=== PATIENT | female | born 1955 | race Asian ===

== ENCOUNTER 2018-06-06 01:33 | Emergency (ER) | payer MEDICAID ==
[2018-06-06] MEDS ORDERED: Sodium Chloride 0.9% 1,000 ML IV ONE (01:50)
[2018-06-06] MEDS ORDERED: Ondansetron 4 MG/2 ML SDV IVPUSH ONE (01:50)
--- NOTE | 2018-06-06 01:51 | EDM.PDOC ---
ED HPI GENERAL MEDICAL PROBLEM - General Chief Complaint: General Stated Complaint: DIZZY, VOMITING Time Seen by Provider: 06/06/18 01:51 Source of Information: Reports: Patient - History of Present Illness INITIAL COMMENTS - FREE TEXT/NARRATIVE: HISTORY AND PHYSICAL: History of present illness: []Patient presents with dizziness and vomiting 3, she will woke from sleep complains of dizziness in the 3 episodes of vomiting prior to this is enjoying her usual state of health At current she has no fever nausea vomiting diarrhea constipation chest pain shortness breath headache dizziness palpitation no bowel or urine symptoms she does have muscle spasm in the trapezius distribution on the left which is reproducible with palpation as well as left SCM present for 2 years Review of systems: As per history of present illness and below otherwise all systems reviewed and negative. Past medical history: As per history of present illness and as reviewed below otherwise noncontributory. Surgical history: As per history of present illness and as reviewed below otherwise noncontributory. Social history: No reported history of drug or alcohol abuse. Family history: As per history of present illness and as reviewed below otherwise noncontributory. Physical exam: HEENT: Atraumatic, normocephalic, pupils reactive, negative for conjunctival pallor or scleral icterus, mucous membranes moist, throat clear, neck supple, nontender, trachea midline. Lungs: Clear to auscultation, breath sounds equal bilaterally, chest nontender. Heart: S1S2, regular, negative for clicks, rubs, or JVD. Abdomen: Soft, nondistended, nontender. Negative for masses or hepatosplenomegaly. Negative for costovertebral tenderness. Pelvis: Stable nontender. Genitourinary: Deferred. Rectal: Deferred. Extremities: Atraumatic, negative for cords or calf pain. Neurovascular unremarkable. Neuro: Awake, alert, oriented. Cranial nerves II through XII unremarkable. Cerebellum unremarkable. Motor and sensory unremarkable throughout. Exam nonfocal. Diagnostics: [CBC CMP UA troponin EKG Chest 1 view ] Therapeutics: [ saline Zofran ]k-dur K Dur prescription 40 mEq by mouth daily #10 no refill Patient offered admission she refuses prefers to go home Impression: Hypokalemia [] nausea vomiting dizziness -resolved Chronic history of baseline Definitive disposition and diagnosis as appropriate pending reevaluation and review of above. head Pain Score (Numeric/FACES): 5 - Related Data Allergies Allergy/AdvReac Type Severity Reaction Status Date / Time Iodinated Contrast- Oral and Allergy Airway Verified 06/06/18 01:48 IV Dye Tightness Home Meds: Home Meds Albuterol Sulfate [Proair Hfa] 1 puff IH ASDIRECTED PRN 06/06/18 [History] Calcium Carbonate/Vitamin D3 [Caltrate 600 + D Soft Chew Tab] 0 mg PO BID [History] Cholecalciferol (Vitamin D3) [Vitamin D3] 0 mg PO BID 06/06/18 [History] Linagliptin/Metformin Hcl [Jentadueto 2.5 mg-850 mg Tab] 0 mg PO BID 06/06/18 [ History] Losartan/Hydrochlorothiazide [Losartan-HCTZ 100-25 MG] 0 mg PO DAILY 06/06/18 [ History] amLODIPine Besylate [Amlodipine Besylate] 2.5 mg PO BEDTIME 06/06/18 [History] ED ROS GENERAL - Review of Systems Review Of Systems: See Below ED EXAM, GENERAL - Physical Exam Exam: See Below Course - Vital Signs Last Recorded V/S: Last Vital Signs Temp 97 F 06/06/18 01:33 Pulse 73 06/06/18 03:17 Resp 16 06/06/18 03:17 BP 154/99 H 06/06/18 03:17 Pulse Ox 98 06/06/18 03:17 - Orders/Labs/Meds Orders: Active Orders 24 hr Category Date Time Status EKG Documentation Completion [RC] STAT Care 06/06/18 01:51 Active Chest 1V Frontal [CR] Stat Exams 06/06/18 01:51 Taken Labs: Laboratory Tests 06/06/18 06/06/18 06/06/18 Range/Units 02:00 02:00 02:40 WBC 7.74 (4.0-11.0) K/uL RBC 4.81 (4.30-5.90) M/uL Hgb 15.2 (12.0-16.0) g/dL Hct 42.6 (36.0-46.0) % MCV 88.6 (80.0-98.0) fL MCH 31.6 (27.0-32.0) pg MCHC 35.7 (31.0-37.0) g/dL RDW Std Deviation 37.7 (28.0-62.0) fl RDW Coeff of Claudia 12 (11.0-15.0) % Plt Count 183 (150-400) K/uL MPV 8.80 (7.40-12.00) fL Neut % (Auto) 53.5 (48.0-80.0) % Lymph % (Auto) 36.8 (16.0-40.0) % [place] % (Auto) 6.7 (0.0-15.0) % Eos % (Auto) 2.7 (0.0-7.0) % Baso % (Auto) 0.3 (0.0-1.5) % Neut # (Auto) 4.1 (1.4-5.7) K/uL Lymph # (Auto) 2.9 H (0.6-2.4) K/uL [place] # (Auto) 0.5 (0.0-0.8) K/uL Eos # (Auto) 0.2 (0.0-0.7) K/uL Baso # (Auto) 0.0 (0.0-0.1) K/uL Nucleated RBC % 0.0 /100WBC Nucleated RBCs # 0 K/uL Sodium 140 (136-145) mmol/L Potassium 2.7 L (3.5-5.1) mmol/L Chloride 99 (98-107) mmol/L Carbon Dioxide 29.8 (21.0-32.0) mmol/L BUN 22 H (7.0-18.0) mg/dL Creatinine 0.8 (0.6-1.0) mg/dL Est Cr Clr Drug Dosing TNP Estimated GFR (MDRD) > 60.0 ml/min Glucose 187 H (74-106) mg/dL Calcium 9.7 (8.5-10.1) mg/dL Total Bilirubin 0.4 (0.2-1.0) mg/dL AST 14 L (15-37) IU/L ALT 12 L (14-63) IU/L Alkaline Phosphatase 60 (46-116) U/L Troponin I < 0.050 (0.000-0.056) ng/mL Total Protein 7.7 (6.4-8.2) g/dL Albumin 3.9 (3.4-5.0) g/dL Globulin 3.8 (2.6-4.0) g/dL Albumin/Globulin Ratio 1.0 (0.9-1.6) Urine Color YELLOW Urine Appearance CLEAR Urine pH 7.0 (5.0-8.0) Ur Specific [place] 1.020 (1.001-1.035) Urine Protein 30 H (NEGATIVE) mg/dL Urine Glucose (UA) 100 H (NEGATIVE) mg/dL Urine Ketones NEGATIVE (NEGATIVE) mg/dL Urine Occult Blood NEGATIVE (NEGATIVE) Urine Nitrite NEGATIVE (NEGATIVE) Urine Bilirubin NEGATIVE (NEGATIVE) Urine Urobilinogen 0.2 (<2.0) EU/dL Ur Leukocyte Esterase NEGATIVE (NEGATIVE) Urine RBC 0-1 (0-2/HPF) Urine WBC 0-1 (0-5/HPF) Ur Epithelial Cells OCCASIONAL (NONE-FEW) Urine Bacteria RARE (NEGATIVE) Meds: Medications Discontinued Medications Generic Name Dose Route Start Last Admin Trade Name Freq PRN Reason Stop Dose Admin Sodium Chloride 1,000 mls @ 999 mls/hr 06/06/18 01:50 06/06/18 02:02 Normal Saline IV 06/06/18 02:50 999 mls/hr STAT ONE Administration Ondansetron HCl 8 mg 06/06/18 01:50 06/06/18 02:02 Zofran IVPUSH 06/06/18 01:51 8 mg ONETIME ONE Administration Potassium Chloride 40 meq 06/06/18 02:53 06/06/18 03:16 Klor-Con M20 PO 06/06/18 02:54 40 meq ONETIME ONE Administration Departure - Departure Time of Disposition: 03:41 Disposition: Home, Self-Care 01 Condition: Good Clinical Impression: Hypokalemia, Nausea & vomiting - Discharge Information Referrals: PCP,None [Primary Care Provider] - Forms: ED Department Discharge Additional Instructions: The following information is given to patients seen in the emergency department who are being discharged to home. This information is to outline your options for follow-up care. We provide all patients seen in our emergency department with a follow-up referral. The need for follow-up, as well as the timing and circumstances, are variable depending upon the specifics of your emergency department visit. If you don't have a primary care physician on staff, we will provide you with a referral. We always advise you to contact your personal physician following an emergency department visit to inform them of the circumstance of the visit and for follow-up with them and/or the need for any referrals to a consulting specialist. The emergency department will also refer you to a specialist when appropriate. This referral assures that you have the opportunity for follow-up care with a specialist. All of these measure are taken in an effort to provide you with optimal care, which includes your follow-up. Under all circumstances we always encourage you to contact your private physician who remains a resource for coordinating your care. When calling for follow-up care, please make the office aware that this follow-up is from your recent emergency room visit. If for any reason you are refused follow-up, please contact the [facility] emergency department at and asked to speak to the emergency department charge nurse. - My Orders Last 24 Hours: My Active Orders 06/06/18 01:51 EKG Documentation Completion [RC] STAT Chest 1V Frontal [CR] Stat - Assessment/Plan Last 24 Hours: My Active Orders 06/06/18 01:51 EKG Documentation Completion [RC] STAT Chest 1V Frontal [CR] Stat
[2018-06-06 02:37] LABS: CHLORIDE,CL 99 mmol/L (98-107); SODIUM,NA 140 mmol/L (136-145)
[2018-06-06] MEDS ORDERED: Potassium Chloride 20 MEQ Tab.ER PO ONE (02:53)
--- NOTE | 2018-06-06 11:21 | CR ---
EXAM DATE: 06/06/18 PATIENT'S AGE: 62 Patient: PIERRE GAITAN Facility: [place], [place] Site . Site : 1955 Study: XRay Chest -06/06/2018 2:31:02 AM Ordering Physician: Jordyn Morrison Final Report: Indication: Chest pain Technique: Chest 1 view. Comparison: None Findings: Cardiovascular and mediastinum: Heart size and vasculature are normal in caliber and appearance. Mediastinum is within normal limits. Lungs and pleural space: Lungs are clear. No sign of infiltrate or mass. No sign of pleural effusion. No pneumothorax. Bones and soft tissues: No significant findings. Impression: No sign of acute disease. Dictated by Viky Herrera MD @ Jun 06 2018 2:38AM (Electronic Signature) Report Signed by Proxy. NY[facility] LANGONE ORTHOPEDIC HOSPITALChelsie
== END 2018-06-06 03:55 | disposition home or self-care (01) ==
LOC: MW.ED 01:33
DX: E87.6 Hypokalemia (principal); I10 Essential (primary) hypertension; Z79.899 Other long term (current) drug therapy; Z91.041 Radiographic dye allergy status
CPT/HCPCS: 36415; 71045; 80053; 81001; 84484; 85025; 93005; 96361; 96374; 99284; A9270; J2405; J7040; 99283

== ENCOUNTER 2018-06-29 07:32 | Day surgery (SDC) | payer MEDICAID ==
[~2018-06-29 07:32] MED LIST: Lactated Ringers 1,000 ML IV SCH; Sodium Chloride 0.9% 10 ML Syringe FLUSH PRN; Sodium Chloride 0.9% 2.5 ML Syringe FLUSH PRN
--- NOTE | 2018-06-29 08:29 | PCM.PREANE ---
Preanesthetic Assessment - Anesthesia/Transfusion/Family Hx Anesthesia History: Prior Anesthesia Without Reaction Family History of Anesthesia Reaction: No Transfusion History: Prior Transfusion Reaction Type of Transfusion Reactions: Reports: Other (see below) Other Type of Transfusion Reaction: dizzy, hot, burning feeling Intubation History: Unknown - Review of Systems General: No Symptoms Pulmonary: No Symptoms Cardiovascular: No Symptoms Gastrointestinal: Constipation, Other (change in bowel habits) Neurological: No Symptoms Other: Reports: None - Physical Assessment Height: 1.52 m Weight: 63.957 kg ASA Class: 2 Mental Status: Alert & Oriented x3 Airway Class: Mallampati = 2 Dentition: Reports: Normal Dentition Thyro-Mental Finger Breadths: 3 Mouth Opening Finger Breadths: 2 ROM/Head Extension: Full Lungs: Clear to Auscultation, Normal Respiratory Effort Cardiovascular: Regular Rate, Regular Rhythm - Allergies Allergies/Adverse Reactions: Allergies Allergy/AdvReac Type Severity Reaction Status Date / Time Iodine and Iodide Containing Allergy Mild Anaphylactic Verified 06/26/18 14:03 Produc Shock Iodinated Contrast- Oral and Allergy Airway Verified 06/06/18 01:48 IV Dye Tightness - Blood Blood Available: No - Anesthesia Plan Pre-Op Medication Ordered: None - Acknowledgements Anesthesia Type Planned: MAC Pt an Appropriate Candidate for the Planned Anesthesia: Yes Alternatives and Risks of Anesthesia Discussed w Pt/Guardian: Yes Pt/Guardian Understands and Agrees with Anesthesia Plan: Yes PreAnesthesia Questionnaire HEENT History: Reports: Cataract Cardiovascular History: Reports: High Cholesterol, Hypertension Respiratory History: Reports: Asthma Other Respiratory History: only takes medications as needed Gastrointestinal History: Reports: [employer] History: Reports: Ectopic Other OB/BYN History: ectopic x3 Musculoskeletal History: Reports: Arthritis, Other (See Below) (osteopenia) Neurological History: Reports: Migraines, Other (See Below) Other Neuro History: hx of motion sickness, has earring to control migraines Psychiatric History: Reports: Depression Endocrine/Metabolic History: Reports: Diabetes, Type II (glucose 133 this morning) Hematologic History: Reports: Blood Transfusion(s) - Past Surgical History Head Surgeries/Procedures: Reports: None HEENT Surgical History: Reports: Eye Surgery Other HEENT Surgeries/Procedures: hx of Left Corneal transplant GI Surgical History: Reports: None Female Surgical History: Reports: Breast Biopsy, Other (See Below) Other Female Surgeries/Procedures: salpingectomy x3, uterine myomectomy - SUBSTANCE USE Smoking Status *Q: Never Smoker Recreational Drug Use History: Yes - HOME MEDS Home Medications: Home Meds Calcium Carbonate/Vitamin D3 [Caltrate 600 + D Soft Chew Tab] 1 tab PO BID 06/06 [History] Cholecalciferol (Vitamin D3) [Vitamin D3] 1,000 unit PO DAILY 06/06/18 [History] Linagliptin/Metformin Hcl [Jentadueto 2.5 mg-850 mg Tab] 1 tab PO BID 06/06/18 [ History] Losartan/Hydrochlorothiazide [Losartan-HCTZ 100-25 MG] 1 tab PO DAILY 06/06/18 [ History] amLODIPine Besylate [Amlodipine Besylate] 5 mg PO BEDTIME 06/06/18 [History] Albuterol Sulfate 1 vial NEB Q4H PRN 06/26/18 [History] Aspirin [Adult Low Dose Aspirin EC] 81 mg PO DAILY 06/26/18 [History] Fluticasone/Salmeterol [Advair 250-50 Diskus] 2 puff INH BID PRN 06/26/18 [ History] atorvaSTATin Calcium [Atorvastatin Calcium] 40 mg PO BEDTIME 06/26/18 [History] - CURRENT (IN HOUSE) MEDS Current Meds: Current Medications Lactated Ringer's (Ringers, Lactated) 1,000 mls @ 125 mls/hr IV ASDIRECTED SULAIMAN Sodium Chloride (Saline Flush) 10 ml FLUSH ASDIRECTED PRN PRN Reason: Keep Vein Open Sodium Chloride (Saline Flush) 2.5 ml FLUSH ASDIRECTED PRN PRN Reason: Keep Vein Open Sodium Chloride (Saline Flush) 10 ml FLUSH ASDIRECTED PRN PRN Reason: Keep Vein Open Sodium Chloride (Saline Flush) 2.5 ml FLUSH ASDIRECTED PRN PRN Reason: Keep Vein Open
[2018-06-29] MEDS ORDERED: Midazolam 1 MG/ML 2 ML SDV ONE (10:21)
[2018-06-29] MEDS ORDERED: Propofol 200 MG/20 ML SDV ONE (10:23)
--- NOTE | 2018-06-29 10:59 | PCM.OPNOTE ---
- General Post-Op/Procedure Note Date of Surgery/Procedure: 06/29/18 Operative Procedure(s): Diagnostic colonoscopy Findings: Normal colon Pre Op Diagnosis: CHange in bowel habits Post-Op Diagnosis: Normal colonoscopy Anesthesia Technique: MAC Primary Surgeon: Mita Gallegos Condition: Good
--- NOTE | 2018-06-29 18:53 | OR ---
SURGEON: NIC VARGAS MD DATE OF PROCEDURE: 06/29/2018 PREOPERATIVE DIAGNOSIS: Change in bowel habits. POSTOPERATIVE DIAGNOSIS: Normal colonoscopy. PROCEDURE PERFORMED: Diagnostic colonoscopy. ANESTHESIA: MAC. INSTRUMENT USED: Olympus colonoscope. EXTENT OF EXAM: To the cecum. PREPARATION: Good. LIMITATIONS: None. INDICATION FOR EXAMINATION: The patient is a 62-year-old female who presented to clinic with an acute change in her bowel habits. The patient and I discussed the need for diagnostic colonoscopy. I explained the procedure, expected perioperative course, and risks including bleeding, infection, or damage to surrounding structures including perforation. The patient verbalized understanding and wishes to proceed. PROCEDURE IN DETAIL: The patient was brought to the endoscopy suite and placed in the left lateral decubitus position. A time-out was completed verifying the patient's name, age, date of , allergies, and procedure to be performed. Monitored anesthesia care was induced and continuous oxygen was provided via nasal cannula throughout the procedure. After adequate sedation was achieved, a digital rectal exam was performed. This exam was within normal limits. A well lubricated colonoscope was inserted in the rectum and advanced under direct visualization to the level of the cecum. The cecum was identified by both visual and anatomic landmarks. A photograph was taken of the cecal cap; however, I was unable to retroflex the scope within the cecum due to looping of the scope more proximally. The scope was then straightened out and fully withdrawn while examining the color, texture, anatomy, and integrity of the mucosa from the cecum to the anal canal. The findings were consistent with normal colonic mucosa. The scope was then brought into the rectum and retroflexed to allow visualization of the anal canal opening. This appeared normal and a photograph was taken. Scope was then straightened out and fully withdrawn. The cecum to anus time was 10 minutes. The patient tolerated the procedure well and was transferred to the PACU in stable condition. ENDOSCOPIC DIAGNOSIS: Normal colonoscopy. RECOMMENDATIONS: The patient can follow up in clinic in 2 weeks to discuss any further workup or treatment needed for her change in bowel habits. CHANTELLE CROOKS /[id number]
== END 2018-06-29 11:33 | disposition home or self-care (01) ==
LOC: MW.SDS 07:32
PROVIDERS: ATTEND Surgery
DX: K59.09 Other constipation (principal); J45.909 Unspecified asthma, uncomplicated; I10 Essential (primary) hypertension; M19.90 Unspecified osteoarthritis, unspecified site; M85.80 Other specified disorders of bone density and structure, unspecified site; E78.5 Hyperlipidemia, unspecified; E87.6 Hypokalemia; E11.42 Type 2 diabetes mellitus with diabetic polyneuropathy; E66.3 Overweight; Z68.27 Body mass index [BMI] 27.0-27.9, adult; F32.9 Major depressive disorder, single episode, unspecified; Z88.5 Allergy status to narcotic agent; Z88.6 Allergy status to analgesic agent; Z91.041 Radiographic dye allergy status; Z91.048 Other nonmedicinal substance allergy status; Z79.82 Long term (current) use of aspirin; Z79.84 Long term (current) use of oral hypoglycemic drugs; Z79.899 Other long term (current) drug therapy; Z87.891 Personal history of nicotine dependence
CPT/HCPCS: 45378; J2250; J2704; J7120